=== PATIENT | male | born 2005 | race Caucasian/White ===

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

== ENCOUNTER 2023-07-24 20:17 | Emergency (ER) | payer OTHER ==
[~2023-07-24] VITALS: Ht 190.5 cm; Wt 60.3 kg
[~2023-07-24 20:17] MED LIST changes: +CIPRO500 MG PO; +ONDANSETRON4 MG SL
== END 2023-07-24 22:20 | disposition home or self-care (01) ==
LOC: ED 20:17
DX: S62.001A Unspecified fracture of navicular [scaphoid] bone of right wrist, initial encounter for closed fracture (principal); F90.9 Attention-deficit hyperactivity disorder, unspecified type; V23.49XA Other motorcycle driver injured in collision with car, pick-up truck or van in traffic accident, initial encounter; Y93.I9 Activity, other involving external motion; Y92.410 Unspecified street and highway as the place of occurrence of the external cause; Y99.8 Other external cause status